=== PATIENT | male | born 1975 | race Caucasian/White ===

== ENCOUNTER 2023-07-31 06:36 | Inpatient (IN) | payer BC ==
[~2023-07-31 06:36] MED LIST: Famotidine 20 MG/2 ML SDV IVPUSH SCH; Sodium Chloride 0.9% 10 ML Syringe FLUSH PRN; Sodium Chloride 0.9% 2.5 ML Syringe FLUSH PRN
[2023-07-31] MEDS ORDERED: Lidocaine 2% 5 ML SDV ONE (06:58)
[2023-07-31] MEDS ORDERED: Phenylephrine 1% 10 MG/ML SDV ONE (06:58)
[2023-07-31] MEDS ORDERED: Ondansetron 4 MG/2 ML SDV ONE (06:58)
[2023-07-31] MEDS ORDERED: Dexamethasone 4 MG/ML 5 ML MDV ONE (06:58)
[2023-07-31] MEDS ORDERED: Tranexamic Acid 1,000 MG/10 ML Vial ONE (06:58)
[2023-07-31] MEDS ORDERED: ceFAZolin 1 GM Vial ONE (06:59)
[2023-07-31] MEDS ORDERED: dexmedeTOMIDine HCl 200 MCG/2 ML SDV ONE (06:59)
[2023-07-31] MEDS ORDERED: Water For Injection, Sterile 20 ML ONE (06:59)
[2023-07-31] MEDS ORDERED: Magnesium Sulfate (4.06 MEQ/ML) 5 GM/10 ML SDV ONE (06:59)
[2023-07-31] MEDS ORDERED: Ropivacaine 49.25 ML, Ketorolac 30 MG, EPINEPHrine 0.5 MG, cloNIDine 80 MCG in Sodium C... INJECT SCH (07:00)
[2023-07-31] MEDS ORDERED: Ropivacaine 0.5% 5 MG/ML 30 ML SDV ONE (07:06)
[2023-07-31] MEDS ORDERED: propofoL 100 ML ONE (07:06)
[2023-07-31] MEDS ORDERED: Phenylephrine HCl 0.5 MG/5 ML AMP ONE (07:09)
[2023-07-31] MEDS ORDERED: EPINEPHrine 1 MG/1 ML Amp ONE (07:13)
[2023-07-31] MEDS ORDERED: Albuterol 0.083% 2.5 MG/3 ML Neb Soln NEB PRN (07:14)
[2023-07-31] MEDS ORDERED: Naloxone 0.4 MG/ML SDV IVPUSH PRN (07:14)
[2023-07-31] MEDS ORDERED: Ondansetron 4 MG/2 ML SDV IVPUSH PRN ×2 (07:14→12:00)
[2023-07-31] MEDS ORDERED: Morphine 2 MG/ML SYRINGE IVPUSH PRN ×2 (07:14→12:00)
[2023-07-31] MEDS ORDERED: Metoclopramide 10 MG/2 ML SDV IVPUSH PRN (07:14)
[2023-07-31] MEDS ORDERED: droPERidol 5 MG/2 ML SDV IVPUSH PRN (07:14)
[2023-07-31] MEDS: Lactated Ringers 1,000 ML IV SCH ×2 (07:14→13:12)
[2023-07-31] MEDS ORDERED: fentaNYL 50 MCG/ML SDV IVPUSH PRN (07:14)
[2023-07-31] MEDS ORDERED: HYDROmorphone 1 MG/ML Syringe IVPUSH PRN (07:14)
[2023-07-31] MEDS ORDERED: Famotidine 20 MG/2 ML SDV ONE (07:23)
[2023-07-31] MEDS ORDERED: Tranexamic Acid IN NACL,ISO-OS 1,000 MG in Premix Bag 1 BAG IV SCH ×2 (08:00)
[2023-07-31] MEDS ORDERED: ceFAZolin 2 GM in Sodium Chloride 0.9% 50 ML IV SCH (08:00)
[2023-07-31] MEDS ORDERED: Propofol 200 MG/20 ML SDV ONE (09:52)
[2023-07-31] MEDS ORDERED: traMADol 50 MG Tab PO PRN (12:00)
[2023-07-31] MEDS ORDERED: Aluminum Hydroxide/Magnesium Hydroxide/Simethicone XS Susp 30 ML Cup PO PRN (12:00)
[2023-07-31] MEDS ORDERED: diphenhydrAMINE 25 MG Cap PO PRN (12:00)
[2023-07-31] MEDS: Ketorolac 30 MG/ML SDV IVPUSH SCH ×2 (12:53→18:02)
[2023-07-31] MEDS: Acetaminophen 325 MG Tab PO SCH ×3 (13:04→21:11)
[2023-07-31] MEDS: ceFAZolin 2 GM in Sodium Chloride 0.9% 50 ML IV SCH ×2 (13:17→21:35)
[2023-07-31] MEDS: Aspirin 325 MG Tab PO SCH (19:24)
[2023-07-31] MEDS: Docusate Sodium 100 MG Cap PO SCH (21:12)
[2023-07-31] MEDS: oxyCODONE 5 MG Tab PO PRN (23:07)
[2023-08-01] MEDS: Ketorolac 30 MG/ML SDV IVPUSH SCH (00:24)
[2023-08-01] MEDS: Acetaminophen 325 MG Tab PO SCH ×3 (02:32→09:27)
[2023-08-01] MEDS: oxyCODONE 5 MG Tab PO PRN (05:31)
[2023-08-01 06:27] LABS: HEMATOCRIT 37.9 % (42.0-52.0); HEMOGLOBIN 12.9 g/dL (14.0-18.0)
[2023-08-01] MEDS ORDERED: Famotidine 20 MG Tab PO SCH (09:00)
[2023-08-01] MEDS ORDERED: Ibuprofen 600 MG Tab PO SCH (09:00)
[2023-08-01] MEDS ORDERED: Polyethylene Glycol 3350 Powder 17 GM Packet PO SCH (09:00)
[2023-08-01] MEDS: Aspirin 325 MG Tab PO SCH (09:26)
[2023-08-01] MEDS: Docusate Sodium 100 MG Cap PO SCH (09:30)
== END 2023-08-01 12:00 | disposition home or self-care (01) | DRG 324 ==
LOC: MW.SDS 06:36 → EDSTATUS 08:00 → MW.MS 11:26
PROVIDERS: ADMIT Orthopaedic Surgery; ATTEND Orthopaedic Surgery
PROC: 0SRB0JZ Replacement of Left Hip Joint with Synthetic Substitute, Open Approach (ICD-10-PCS; principal; 2023-07-31 08:00)
DX: M16.32 Unilateral osteoarthritis resulting from hip dysplasia, left hip (principal); Z87.01 Personal history of pneumonia (recurrent)
CPT/HCPCS: 01214; 36415; 64999; 73501-26-LT; 73501-LT; 85014; 85018; 86850; 86900; 86901; 97110-GP; 97162-GP; 97530-GP; A9270-GY; C1713; C1776; J0171; J0690; J0735; J1100; J1885; J2371; J2405; J2704; J2795; J3475; J3490; J7120